=== PATIENT | male | born 1975 | race Caucasian/White ===

== ENCOUNTER 2017-12-23 11:59 | Emergency (ER) | payer OTHER ==
[~2017-12-23] VITALS: Ht 180.3 cm; Wt 86.2 kg
[2017-12-23] MEDS ORDERED: METFORMIN HCL500 MG PO (12:06)
[2017-12-23] MEDS ORDERED: NOVOLOG100 UNIT/1 SUBQ (12:07)
[2017-12-23] MEDS ORDERED: HUMALOG100 UNIT/1 SUBQ (12:07)
[2017-12-23 12:21] LABS: HEMOGLOBIN 15.2 gm/dL (14.0-18.0); MCH 29.1 pg (26.0-34.0); MCHC 34.5 g/dL (28.0-37.0); MCV 84.3 fL (80.0-100.0); MPV 7.8 fl. (7.2-11.1); NUCLEATED RBCS 0 /100WBC; PLATELET COUNT* 346 thou/uL (150-400); RBC 5.22 mil/uL (4.50-6.00); RDW-CV 13.4 % (10.5-14.5); WBC 15.8 thou/uL (4.0-11.0)
[2017-12-23 12:31] LABS: ANION GAP 5 mmol/L (7-16); BUN 17 mg/dL (7-18); CALCIUM 9.1 mg/dL (8.5-10.1); CHLORIDE 103 mmol/L (98-107); CO2 30 mmol/L (21-32); GLUCOSE 135 mg/dL (70-99); POTASSIUM 3.7 mmol/L (3.5-5.1); PROTIME 9.8 Seconds (9.20-11.50); SODIUM 138 mmol/L (136-145)
[2017-12-23 12:36] LABS: ABSOLUTE LYMPHOCYTES 0.3 thou/uL (0.8-5.3); ABSOLUTE MONOCYTES 0.3 thou/uL (0.0-1.2); ABSOLUTE NEUTROPHILS 15.2 thou/uL (1.6-8.1); ANISOCYTOSIS 1+; PLATELET ESTIMATE ADEQUATE; POIKILOCYTOSIS 1+
[2017-12-23 12:46] LABS: ALBUMIN 3.2 g/dL (3.4-5.0); ALKALINE PHOSPHATASE 136 U/L (46-116); CK-MB MASS < 0.5 ng/mL (<0.5-3.6); LIPASE 111 U/L (73-393); MAGNESIUM 1.4 mg/dL (1.8-2.4); NT-PRO BRAIN NAT PEPTIDE 15 pg/mL (<300); SGOT 15 U/L (15-37); SGPT 32 U/L (30-65); TOTAL BILIRUBIN 0.5 mg/dL (<0.1-1.0); TOTAL PROTEIN 6.9 g/dL (6.4-8.2); TROPONIN-I LEVEL <0.06 ng/mL (<0.06)
[2017-12-23 13:09] VITALS: BP 92/68
--- NOTE | 2017-12-23 16:42 | EKG ---
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
== END 2017-12-23 13:09 | disposition home or self-care (01) ==
LOC: M.ERS 11:59
PROVIDERS: Family Medicine
DX: R07.9 Chest pain, unspecified (principal); E11.9 Type 2 diabetes mellitus without complications; F17.210 Nicotine dependence, cigarettes, uncomplicated; Z79.4 Long term (current) use of insulin

== ENCOUNTER 2018-05-01 21:06 | Emergency (ER) | payer OTHER ==
[~2018-05-01] VITALS: Ht 180.3 cm; Wt 88.5 kg
[~2018-05-01 21:06] MED LIST: HUMALOG100 UNIT/1 SUBQ; METFORMIN HCL500 MG PO; NOVOLOG100 UNIT/1 SUBQ
[2018-05-01] MEDS ORDERED: INSULIN (21:14)
[2018-05-01 21:22] LABS: ABSOLUTE BASOPHILS 0.1 thou/uL (0.0-0.2); ABSOLUTE EOSINOPHILS 0.3 thou/uL (0.0-0.7); ABSOLUTE LYMPHOCYTES 3.9 thou/uL (0.8-5.3); ABSOLUTE MONOCYTES 0.9 thou/uL (0.0-1.2); ABSOLUTE NEUTROPHILS 5.4 thou/uL (1.6-8.1); BASOPHILS 0.9 %; EOSINOPHILS 2.6 %; HEMATOCRIT 45.8 % (42.0-52.0); HEMOGLOBIN 15.9 gm/dL (14.0-18.0); LYMPHOCYTES 37.2 %; MCH 29.9 pg (26.0-34.0); MCHC 34.7 g/dL (28.0-37.0); MCV 86.2 fL (80.0-100.0); MONOCYTES 8.2 %; MPV 7.5 fl. (7.2-11.1); NUCLEATED RBCS 0 /100WBC; PLATELET COUNT* 325 thou/uL (150-400); POLYS 51.1 %; RBC 5.31 mil/uL (4.50-6.00); RDW-CV 14.1 % (10.5-14.5); WBC 10.6 thou/uL (4.0-11.0)
[2018-05-01 21:34] LABS: ANION GAP 10 mmol/L (7-16); BUN 17 mg/dL (7-18); CHLORIDE 103 mmol/L (98-107); CO2 27 mmol/L (21-32); GLUCOSE 148 mg/dL (70-99); POTASSIUM 3.5 mmol/L (3.5-5.1); SODIUM 140 mmol/L (136-145)
[2018-05-01 21:44] LABS: ALBUMIN 3.7 g/dL (3.4-5.0); ALKALINE PHOSPHATASE 130 U/L (46-116); LIPASE 122 U/L (73-393); MAGNESIUM 1.6 mg/dL (1.8-2.4); NT-PRO BRAIN NAT PEPTIDE 42 pg/mL (<300); SGOT 22 U/L (15-37); SGPT 29 U/L (30-65); TOTAL BILIRUBIN 0.6 mg/dL (<0.1-1.0); TOTAL PROTEIN 7.5 g/dL (6.4-8.2); TROPONIN-I LEVEL <0.06 ng/mL (<0.06)
[2018-05-01 22:40] VITALS: BP 108/57
--- NOTE | 2018-05-02 15:27 | EKG ---
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 05/02/18 1526 2109 08 Gerardo Cornelius MD, FACC /EPI
== END 2018-05-01 22:40 | disposition home or self-care (01) ==
LOC: M.ERS 21:06
PROVIDERS: Emergency Medicine Emergency Medical Services
DX: R07.89 Other chest pain (principal); E11.9 Type 2 diabetes mellitus without complications; F17.210 Nicotine dependence, cigarettes, uncomplicated; Z79.4 Long term (current) use of insulin

== ENCOUNTER 2020-10-15 11:04 | Emergency (ER) | payer MEDICAID ==
[~2020-10-15] VITALS: Ht 180.3 cm; Wt 92.1 kg
[~2020-10-15 11:04] MED LIST changes: +INSULIN
[2020-10-15] MEDS ORDERED: COLACE100 MG PO (12:14)
[2020-10-15] MEDS ORDERED: CHILDREN'S ASPI81 MG PO (12:14)
[2020-10-15] MEDS ORDERED: JARDIANCE25 MG PO (12:14)
[2020-10-15] MEDS ORDERED: LASIX 40 MG TAB40 MG PO (12:14)
[2020-10-15] MEDS ORDERED: LIPITOR80 MG PO (12:14)
[2020-10-15] MEDS ORDERED: HYDROXYZINE HCL25 M2 PO (12:15)
[2020-10-15] MEDS ORDERED: LANTUS SUBQ (12:15)
[2020-10-15] MEDS ORDERED: ISOSORBIDE MON120 MG PO (12:16)
[2020-10-15] MEDS ORDERED: INSULIN LI100 UNIT/4 SUBQ (12:16)
[2020-10-15] MEDS ORDERED: VICTOZA0.6 MG/0.1 SUBQ (12:16)
[2020-10-15] MEDS ORDERED: METFORMIN HCL500 M3 PO (12:16)
[2020-10-15] MEDS ORDERED: REMERON15 M1 PO (12:17)
[2020-10-15] MEDS ORDERED: TOPROL XL100 MG PO (12:17)
[2020-10-15] MEDS ORDERED: SERTRALINE HCL25 M1 PO (12:17)
[2020-10-15] MEDS ORDERED: PROTONIX40 M2 PO (12:17)
[2020-10-15] MEDS ORDERED: FLOMAX0.4 MG PO (12:17)
[2020-10-15] MEDS ORDERED: POTASSIUM99 M1 PO (12:18)
[2020-10-15] MEDS ORDERED: AVAPRO 150 MG150 MG PO (12:18)
[2020-10-15] MEDS ORDERED: FLEXERIL PO (14:04)
[2020-10-15 14:18] VITALS: BP 101/64
== END 2020-10-15 14:18 | disposition home or self-care (01) ==
LOC: M.ERS 11:04
DX: R51.9 Headache, unspecified (principal); M54.5 Low back pain; M54.2 Cervicalgia; E11.9 Type 2 diabetes mellitus without complications; F17.210 Nicotine dependence, cigarettes, uncomplicated; Z79.82 Long term (current) use of aspirin; Z79.4 Long term (current) use of insulin; Z79.899 Other long term (current) drug therapy; W01.198A Fall on same level from slipping, tripping and stumbling with subsequent striking against other object, initial encounter; Y93.89 Activity, other specified; Y92.89 Other specified places as the place of occurrence of the external cause; Y99.8 Other external cause status